=== PATIENT | female | born 1935 | race Caucasian/White ===

== ENCOUNTER 2023-10-14 08:00 | Day surgery (SDC) | payer OTHER ==
[2023-10-10 10:23] VITALS: BMI 25.0
[2023-10-14] MEDS ORDERED: DEXAMETHASONE SOD PHOSPHATE 4 MG/1 ML VIAL ONE (08:43)
[2023-10-14] MEDS ORDERED: PROPOFOL 40 ML ONE (08:43)
[2023-10-14] MEDS ORDERED: ONDANSETRON 4 MG/2 ML VIAL ONE (08:43)
[2023-10-14] MEDS ORDERED: MIDAZOLAM HCL 2 MG/2 ML SINGLE DOSE VIAL ONE (08:43)
[2023-10-14] MEDS ORDERED: ceFAZolin SODIUM 1 GM VIAL ONE ×2 (08:43→11:24)
[2023-10-14] MEDS ORDERED: ERYTHROMYCIN 0.5% OPHTHALMIC OINTMENT 3.5 GM TUBE ONE (11:22)
[2023-10-14] MEDS ORDERED: TETRACAINE 0.5% OPHTH SOLN 2 ML BOTTLE ONE (11:22)
[2023-10-14] MEDS ORDERED: LIDOCAINE 1%/EPI 1:100000 (20 ML MULTI DOSE VIAL) ONE (11:22)
[2023-10-14] MEDS ORDERED: BUPIVACAINE HCL/PF 0.5% (5MG/ML) 10 ML VIAL ONE (11:23)
[2023-10-14] MEDS ORDERED: POVIDONE-IODINE 5% OPHTHALMIC PREP 30 ML SOLUTION ONE (11:58)
[2023-10-14] MEDS ORDERED: LACTATED RINGERS SOLUTION 1,000 ML IV SCH (13:30)
[2023-10-14 15:19] VITALS: RESP 19; TEMP 97.6
[2023-10-14 15:43] VITALS: BP 114/61; PULSE 76
== END 2023-10-14 15:30 | disposition home or self-care (01) ==
LOC: FASU 08:00
PROVIDERS: ATTEND Ophthalmology
PROC: 0KR Muscles, Replacement (ICD-10-PCS; 2023-10-14)
PROC: 08SQ0ZZ Reposition Right Lower Eyelid, Open Approach (ICD-10-PCS; principal; 2023-10-14 12:07)
DX: H02.89 Other specified disorders of eyelid (principal); Z85.828 Personal history of other malignant neoplasm of skin
CPT/HCPCS: 94760